=== PATIENT | female | born 2000 | race African-American/Black ===

== ENCOUNTER 2024-05-26 00:23 | Emergency (ER) | payer MEDICAID, OTHER ==
[~2024-05-26] VITALS: Ht 152.4 cm; Wt 75.3 kg
[2024-05-26 00:28] VITALS: O2SAT 98
[2024-05-26] MEDS: ACETAMINOPHEN 325MG TABLET PO ONE (02:20)
[2024-05-26 02:55] LABS: BASOPHILS % 1.1 % (0.0-2.0); EOSINOPHILS % 1.4 % (0.0-5.0); HEMATOCRIT. 33.5 % (36.0-48.0); HEMOGLOBIN. 10.9 g/dL (12.0-16.0); LYMPHOCYTES % 22.2 % (20.0-50.0); MEAN CORPUSCULAR HEMOGLOBIN 26.3 pg (28.0-32.0); MEAN CORPUSCULAR HGB CONC 32.4 g/dL (31.0-37.0); MEAN CORPUSCULAR VOLUME 81.2 fL (81.0-99.0); MEAN PLATELET VOLUME 8.5 fl (7.4-10.4); MONOCYTES % 7.2 % (2.0-8.0); NEUTROPHILS % 68.1 % (40.0-76.0); PLATELET 266 x1000/uL (130-400); RED BLOOD CELL COUNT 4.13 mill/uL (4.2-5.4); RED CELL DISTRIBUTION WIDTH 18.5 % (11.6-14.6); WHITE BLOOD COUNT 10.1 x1000/uL (4.5-11.0)
[2024-05-26 03:07] LABS: CHLORIDE 107 mEq/L (98-107); POTASSIUM 3.7 mEq/L (3.5-5.1); SODIUM 138 mEq/L (136-145)
[2024-05-26 03:08] LABS: CARBON DIOXIDE 28 mEq/L (21-32)
[2024-05-26 03:09] LABS: CALCIUM 9.2 mg/dL (8.7-10.4)
[2024-05-26 03:13] LABS: CREATININE 0.7 mg/dL (0.6-1.0); GLUCOSE 96 mg/dL (70-105); UREA NITROGEN BLOOD 6 mg/dL (9-23)
[2024-05-26] MEDS: SODIUM CHLORIDE 0.9% 1,000 ML IV NR (03:27)
[2024-05-26] MEDS ORDERED: OXYTOCIN 30 UNITS/500ML NS 500 ML IV STA (03:30)
[2024-05-26 03:33] LABS: B-HCG QUANTITATIVE 816 mIU/mL (<3)
[2024-05-26] MEDS ORDERED: SODIUM CHLORIDE 0.9% 1,000 ML IV ONE ×2 (04:30→07:30)
[2024-05-26 04:31] LABS: HEMATOCRIT 24.1 % (36.0-48.0); HEMOGLOBIN 7.8 g/dL (12.0-16.0)
[2024-05-26] MEDS ORDERED: TRANEXAMIC ACID 1,000MG/10ML IV ONE (05:00)
[2024-05-26] MEDS: TRANEXAMIC ACID 1000MG PREMIX 100 ML IV NR (05:15)
[2024-05-26] MEDS: OXYTOCIN 30 UNITS/500ML NS 500 ML IV NR (05:54)
[2024-05-26] MEDS: ONDANSETRON HCL 4MG/2ML INJ IV STA ×2 (06:55→07:03)
[2024-05-26] MEDS: MORPHINE SULFATE 4 MG/ML INJ (FOR IV/IM USE) IV STA (06:58)
[2024-05-26 12:00] VITALS: BP 109/63; PULSE 89; RESP 20; TEMP 98.1
[2024-05-26 16:00] VITALS: BP 122/67; PULSE 92; RESP 20; TEMP 97.9
[2024-05-26 19:34] LABS: HEPATITIS B SURFACE ANTIGEN NEGATIVE (Negative)
[2024-05-26] MEDS: IBUPROFEN 800MG TABLET PO PRN (19:48)
[2024-05-26 19:55] LABS: HEPATITIS C AB NON REACTIVE (Neg) (Negative)
[2024-05-26 20:00] VITALS: BP 111/62; PULSE 87; RESP 20; TEMP 98.1
[2024-05-26] MEDS ORDERED: NALOXONE HCL 0.4MG/ML VIAL IV PRN (22:30)
[2024-05-26] MEDS ORDERED: HYDROCODONE/ACETAMINOPHEN 5/325MG TABLET PO PRN (22:30)
== END 2024-05-26 11:15 | disposition admitted as inpatient to this hospital (09) ==
LOC: ER 00:34 → UNDOADMIN 08:57 → 6WST 08:57 → UNDODISIN 23:58
DX: O03.4 Incomplete spontaneous abortion without complication (principal); O99.011 Anemia complicating pregnancy, first trimester; Z3A.13 13 weeks gestation of pregnancy
CPT/HCPCS: 80048; 84702; 85014; 85018; 85025; 86850; 86900; 86901; 87340; 36415; 86705; 76801; 76817; 96367; 96361; 96365; 96375; 99291; J2405; J2270; J7030; Z7610; J2590